=== PATIENT | male | born 1975 | race Caucasian/White ===

== ENCOUNTER 2017-07-19 13:46 | Emergency (ER) | END 2017-07-19 17:16 | disposition home or self-care (01) ==

== ENCOUNTER 2017-10-28 12:10 | Emergency (ER) | END 2017-10-28 15:07 | disposition home or self-care (01) ==

== ENCOUNTER 2018-02-23 15:11 | Emergency (ER) | END 2018-02-23 17:02 | disposition home or self-care (01) ==

== ENCOUNTER 2018-04-03 14:12 | Emergency (ER) | END 2018-04-03 17:39 | disposition home or self-care (01) ==